=== PATIENT | female | born 1940 | race Two or more races ===

== ENCOUNTER → 2018-12-11 | Outpatient (CLI) | payer OTHER ==
--- NOTE | 2018-12-11 16:43 | RAD ---
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 Findings: Single standing views of bilateral knees are submitted. There is moderate to severe narrowing of the medial compartment joint space of the left knee, moderate narrowing of the medial compartment joint space of the right knee. There is mild chondrocalcinosis of the lateral compartment of the right knee. There is mild osteoarthritic change of the lateral compartments of bilateral knees. Impression: 1. There is osteoarthritic change of the bilateral knees most notable medial compartment left knee. There is some chondrocalcinosis of the lateral compartment of the right knee. Electronically signed by: Sameer Dhillon MD (12/11/2018 4:41 PM) [id number]
== END | disposition home or self-care (01) ==
LOC: RAD 11:33
PROVIDERS: ATTEND Physical Medicine & Rehabilitation
DX: M17.0 Bilateral primary osteoarthritis of knee (principal); M11.261 Other chondrocalcinosis, right knee
CPT/HCPCS: 73565